=== PATIENT | female | born 1955 | race African-American/Black ===

== ENCOUNTER 2023-08-17 08:12 | Emergency (ER) | payer MEDICARE, SELFPAY ==
[2023-08-17 08:17] VITALS: BP 136/85; PULSE 64; RESP 16; TEMP 36.4; O2SAT 100
--- NOTE | 2023-08-17 08:38 | ED.GENADULT ---
HPI - General Adult General Chief complaint: Dental/Oral Stated complaint: Jaw lock Time Seen by Provider: 08/17/23 08:25 Source: patient and RN notes reviewed Mode of arrival: ambulatory Limitations: no limitations History of Present Illness HPI narrative: Patient presents today complaining of pain to her right temporomandibular joint since yesterday. Patient does have history of TMJ pain, but it has not bothered her for many years. It started hurting yesterday while she was eating. She currently rates her pain 3/10 and has tried aspirin, Tylenol, and ibuprofen with little relief. Related Data Home Medications Medication Instructions Recorded Confirmed omeprazole 20 mg capsule,delayed 20 mg PO DAILY 08/17/23 08/17/23 release Allergies Allergy/AdvReac Type Severity Reaction Status Date / Time No Known Allergies Allergy Verified 08/17/23 08:39 Review of Systems Review of Systems: CONSTITUTIONAL: Denies body aches, fever, chills, or sweats. EYES: Denies visual changes, redness, or discharge. ENT: Denies rhinorrhea, congestion, sore throat, or otalgia.+ right TMJ pain CARDIOVASCULAR: Denies chest pain, palpitations, or edema. RESPIRATORY: Denies cough or dyspnea. GASTROINTESTINAL: Denies abdominal pain, nausea, vomiting, or diarrhea. GENITOURINARY: Denies dysuria or hematuria. SKIN: Denies rash, itching, or wounds. MUSCULOSKELETAL: Denies back pain, joint pain, or myalgia. NEUROLOGIC: Denies headache, numbness, tingling, or weakness. PSYCH: Denies depression or anxiety. PMFSH Comments At time of signature, I have reviewed and agree with nursing past medical, surgical, social and family history unless otherwise noted. Please see nursing chart for further information. There is no relevant family history pertinent to the presenting complaint Exam Narrative: GENERAL: Well-appearing, well-nourished, and in no acute distress. HEAD: Normocephalic, atraumatic. EYES: EOMI. No redness or drainage. Conjunctivae normal. ENT: Mucous membranes pink and moist. TMs normal bilaterally. Throat normal. Uvula midline. Tenderness to the right TM Joint. No edema, erythema noted. No crepitus noted to the joint. Full AROM of the jaw. Absent posterior teeth upper and lower right. Gums appear normal. NECK: Normal AROM. Supple. No lymphadenopathy. CHEST: No respiratory distress. EXTREMITIES: Normal range of motion. No edema. SKIN: Warm, dry, no rash. Capillary refill normal. Normal skin turgor. NEURO: No focal deficits. Alert and oriented x3. Gait steady. PSYCH: Normal affect. No signs of depression or anxiety. Course Course Level of Care: Express Care Visit Vital Signs Vital signs: Vital Signs Temperature 97.5 F L 08/17/23 08:17 Pulse Rate 64 08/17/23 08:17 Respiratory Rate 16 08/17/23 08:17 Blood Pressure 136/85 08/17/23 08:17 Pulse Oximetry 100 08/17/23 08:17 Temperature 97.5 F L 08/17/23 08:17 Pulse Rate 64 08/17/23 08:17 Respiratory Rate 16 08/17/23 08:17 Blood Pressure 136/85 08/17/23 08:17 Pulse Oximetry 100 08/17/23 08:17 Reviewed Medical Decision Making MDM Narrative Medical decision making narrative: Instructed patient to continue Tylenol or ibuprofen for pain. Will prescribe her a 5 mg Flexeril to be taken at night to see if this is helpful as well. Discussed eating soft foods for the next several days to give her dropped rest. Patient will follow-up with her PCP or dentist if symptoms do not improve. Differential Diagnosis Differential Diagnosis: Arthritis, TM joint dysfunction, bruxism Vital Signs Vital Signs: Vital Signs Temperature 97.5 F L 08/17/23 08:17 Pulse Rate 64 08/17/23 08:17 Respiratory Rate 16 08/17/23 08:17 Blood Pressure 136/85 08/17/23 08:17 Pulse Oximetry 100 08/17/23 08:17 Temperature 97.5 F L 08/17/23 08:17 Pulse Rate 64 08/17/23 08:17 Respiratory Rate 16 08/17/23 08:17 Blood Pressure
== END 2023-08-17 08:48 | disposition home or self-care (01) ==
PROVIDERS: Emergency Provider Nurse Practitioner
DX: M26.621 Arthralgia of right temporomandibular joint (principal); K21.9 Gastro-esophageal reflux disease without esophagitis
CPT/HCPCS: 99213; G0463

== ENCOUNTER 2024-03-04 08:49 | Emergency (ER) | payer MEDICARE, SELFPAY ==
--- NOTE | 2024-03-04 08:52 | ED.URI ---
HPI - URI/Sore Throat General Chief Complaint: Upper Respiratory Infection Stated Complaint: SINUS CONGESTION/WEAKNESS Time Seen by Provider: 03/04/24 09:07 Source: patient and RN notes reviewed Mode of arrival: ambulatory Limitations: no limitations History of Present Illness HPI Narrative: 68-year-old female presents with concern for sinus congestion, head fullness for 5 days. 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 She has been taking Claritin for her symptoms. She denies fever, chills, sweats. She reports only occasional cough. She denies nausea, vomiting, diarrhea, sore throat. MD elicited complaint: nasal congestion Related Data Home Medications Medication Instructions Recorded Confirmed omeprazole 20 mg capsule,delayed 20 mg PO DAILY 08/17/23 08/17/23 release Allergies Allergy/AdvReac Type Severity Reaction Status Date / Time No Known Allergies Allergy Verified 08/17/23 08:39 Review of Systems Review of Systems: CONSTITUTIONAL: Denies malaise, chills, sweats, or fever. EYES: Denies visual changes, redness, or discharge. ENT: Reports rhinorrhea, congestion. Denies sinus pain, otalgia and sore throat. CARDIOVASCULAR: Denies chest pain, palpitations, or edema. RESPIRATORY: Reports occasional cough. Denies dyspnea. GASTROINTESTINAL: Denies abdominal pain, nausea, vomiting, diarrhea SKIN: Denies rash or itching. MUSCULOSKELETAL: Reports myalgia. NEUROLOGIC: Denies headache. Reports feeling of dizziness when she bends over All systems reviewed & are unremarkable except as noted in HPI and below PMFSH Comments At time of signature, agree with nursing past medical, surgical, social and family history. There is no relevant family history pertinent to the presenting complaint Exam Narrative: GENERAL: Well-appearing, well-nourished, and in no acute distress. HEAD: Normocephalic EYES: PERRLA, conjunctivae clear ENT: Nares clear, turbinates edematous and erythematous, clear discharge. Mucous membranes moist. TM pearly whitfield with dull light reflex bilaterally; no tragal tenderness. Oropharynx not erythematous without lesions. Tonsils not enlarged and without exudate, no drooling, no hoarseness, no trismus, uvula midline. NECK: Supple. No lymphadenopathy CHEST: Clear to auscultation, breath sounds equal. No wheezing, rhonchi, rales, or stridor. No respiratory distress, speaks in full sentences. HEART: Regular rate and rhythm. No murmur heard. SKIN: Warm, dry, no rash. NEURO: Alert and oriented x3. PSYCH: Normal mood and affect Course Course Emergency Course: Patient is aware of diagnosis, understands and agrees to treatment plan. Anticipatory guidance given. Patient agrees to follow-up as directed and is aware of reasons to seek care at the emergency department. Portions of this record may have been created with voice recognition software Level of Care: Express Care Visit Vital Signs Vital signs: Reviewed. MDM - URI/Sore Throat MDM Narrative Medical decision making narrative: Differential diagnosis considered: Vasquez virus, strep pharyngitis, allergic rhinitis, upper respiratory tract infection, sinusitis, rhinosinusitis, nasopharyngitis. viral pharyngitis, otitis media, otitis externa, pneumonia, bronchitis, viral cough syndrome, viral syndrome, and influenza. Exam findings show no acute concerns or changes; patient is non-toxic appearing and is in no distress. Patient is appropriate for outpatient treatment and follow-up. Lab Data Attestation: I reviewed the patient's lab results. Critical Care Time Critical Care Time Critical Care Time: No Discharge Plan Discharge Clinical Impression: Upper respiratory infection Patient Disposition: Home, Self-Care Condition: Stable Instructions: Sinusitis (ED) Additional Instructions: Viral illness may last between 7-21 days; antibiotics do not cure viral illness and are NOT rec
[2024-03-04 09:01] VITALS: BP 167/95; PULSE 60; RESP 16; TEMP 36.1; O2SAT 100
== END 2024-03-04 09:28 | disposition home or self-care (01) ==
PROVIDERS: Emergency Provider Nurse Practitioner
DX: J06.9 Acute upper respiratory infection, unspecified (principal)
CPT/HCPCS: 99213; G0463